=== PATIENT | male | born 2000 | race African-American/Black ===

== ENCOUNTER 2018-05-26 19:02 | Inpatient (IN) | payer SELFPAY ==
--- NOTE | 2018-05-26 19:30 | RAD ---
CHEST TWO VIEWS: 05/26/18 INDICATION: History of pneumonia. COMPARISON: Prior exam dated 05/25/18. FINDINGS: Left lower lobe air space opacity persists. Right lung is clear. cardiothymic silhouette is within no rmal limits. No acute osseous abnormality is evident. IMPRESSION: Persistent left lower lobe pneumonia. POS: [facility]
[2018-05-26] MEDS ORDERED: Ibuprofen 800 MG TAB ONE (19:50)
[2018-05-26 21:02] LABS: Mean Corpuscular HGB CONC 32.8 g/dL (32.0-36.0); Mean Corpuscular Hemoglobin 29.1 pg (25.0-35.0); Mean Corpuscular Volume 88.7 fL (78.0-98.0); Mean Platelet Volume 8.4 fL (7.4-10.4); Platelet Count 239 thou/uL (130-400); RBC Distribution Width 11.3 % (11.5-14.5); Red Blood Cell (RBC) Count 4.81 mill/uL (4.00-5.20); White Blood Cell (WBC) Count 24.1 thou/uL (4.8-10.8)
[2018-05-26 21:09] LABS: Band 51 % (5-11); Lymphocytes 4 % (28-48); MDiff Complete? YES; Monocytes 5 % (0-4); Neutrophil 40 % (31-61); Platelet Morphology Comment Appears Adequate; Reflex for Review?? NO
[2018-05-26 21:11] LABS: ALT (SGPT) 30 U/L (8-55); AST (SGOT) 20 U/L (5-34); Albumin 3.7 g/dL (3.5-5.0); Alkaline Phosphatase 85 U/L (Less than 750); Anion Gap 13 mmol/L (10-20); BUN (Urea Nitrogen) 25 mg/dL (8.9-20.6); Bilirubin, Total 0.8 mg/dL (0.2-1.2); Calc. Creatinine Clearance 0 mL/min (70-130); Calcium 9.7 mg/dL (7.8-10.44); Carbon Dioxide 25 mmol/L (22-29); Chloride 103 mmol/L (98-107); Estimated GFR-MDRD 85; Globulin 3.8 g/dL (2.4-3.5); Glucose 92 mg/dL (70-105); Magnesium 1.6 mg/dL (1.7-2.2); Potassium 3.4 mmol/L (3.5-5.1); Protein, Total 7.5 g/dL (6.0-8.3); Sodium 138 mmol/L (136-145)
[2018-05-26] MEDS ORDERED: cefTRIAXone\\ROCEPHIN 2 GM VIAL ONE (21:48)
[2018-05-26] MEDS ORDERED: Acetaminophen 500 MG TAB ONE (21:48)
[2018-05-26] MEDS ORDERED: Azithromycin 500 MG VIAL ONE ×2 (22:17→22:30)
[2018-05-26] MEDS ORDERED: Sodium Chloride 0.9% 1,000 ML IV SCH (23:25)
[2018-05-27 00:13] VITALS: BMI 23.8
[2018-05-27] MEDS ORDERED: Magnesium Sulfate 2 GM in Sodium Chloride 0.9% 100 ML IVPB SCH (00:15)
[2018-05-27] MEDS ORDERED: Calcium Carbonate 500 MG ChewTAB PO PRN (00:52)
[2018-05-27 00:53] LABS: Lactic Acid 1.1 mmol/L (0.5-2.2)
--- NOTE | 2018-05-27 01:09 | HP ---
The patient was seen and examined on May 26, 2018. PRIMARY CARE PHYSICIAN: The patient has seen Dr. Fair in the past. The patient does not have PCP at this time. CHIEF COMPLAINT: Cough and fever of 2 weeks duration. HISTORY OF PRESENT ILLNESS: The patient is a 18-year-old male, who presented to the emergency room with 2-week history of generalized body aches along with cough and fever. He was diagnosed with pneumonia yesterday and was started on Augmentin at [facility]. He felt worse today for which he presented to the emergency room. Over the last 2 weeks, the patient has generalized body aches along with fever, chills, and cough. The cough was productive of small amount of thick phlegm. He denies any sick contacts or recent travel. He did not seek any medical attention. He tried [id number] Theraflu and started to feel better. Over the last 3 to 4 days, his symptoms got worse for which he presented to the emergency room yesterday. Chest x-ray showed left lower lobe pneumonia. His WBC count was 14.7 with 92% neutrophils. Vital signs in the emergency room showed temperature 99.5, respiration of 20, pulse rate of 110 with blood pressure of 117/62, with O2 saturation 97% on room air. His WBC count today was 24.1 with 51% bandemia. He received vancomycin, azithromycin, and ceftriaxone in the emergency room. PAST MEDICAL HISTORY: Reviewed with the patient and none. He was diagnosed with influenza and strep throat last year. PAST SURGICAL HISTORY: Appendectomy. ALLERGIES: NO KNOWN DRUG ALLERGIES. CURRENT HOME MEDICATION: Augmentin that was started yesterday for pneumonia. SOCIAL HISTORY: The patient is a former smoker. Discontinued last week. No alcohol or drug use. FAMILY HISTORY: Negative for heart disease. REVIEW OF SYSTEMS: All other review of systems were reviewed and were found negative. PHYSICAL EXAMINATION: VITAL SIGNS: As discussed above. GENERAL: A 18-year-old male in mild distress. HEENT: Head, atraumatic and normocephalic. Sclerae anicteric. Moist mucous membranes. No oral lesion. NECK: Supple. No JVD. No carotid bruit. LUNGS: Showed diminished air entry over the left base with scattered rhonchi. Minimal accessory muscle use. No wheezing. HEART: S1 and S2 present. Regular rate and rhythm. Tachycardic. No heaves or pulsation. ABDOMEN: Soft, nontender. Bowel sounds present. EXTREMITIES: No edema or calf tenderness. NEUROLOGIC: Grossly nonfocal. Moves all 4 extremities. PSYCHIATRY: Alert, awake, and oriented x3. SKIN: Warm and dry. LYMPH NODES: No palpable lymph nodes in the neck. PERIPHERAL VASCULAR: Radial pulses palpable bilaterally. MUSCULOSKELETAL: No joint swelling or tenderness. LABORATORY FINDINGS: Influenza testing yesterday was negative. WBC count as discussed above with lymphopenia. His lymphocyte was only 4%. Urinalysis showed ketones with nitrite positive, 2+ bacteria, 4-6 wbc's. Chest x-ray by my review as discussed above. Potassium 3.4 with magnesium 1.9. LFTs in normal range. Lactic acid 1.1. IMPRESSION: 1. Sepsis secondary to left lower lobe pneumonia. The patient failed outpatient therapy. 2. Two weeks history of flu-like symptoms. Suspected influenza. His flu testing however yesterday was negative. 3. Lymphopenia, probably due to recent Viral illness. 4. Hypokalemia with potassium 3.4. 5. Hypomagnesemia. 6. Former smoker. PLAN: The patient will be monitored on the medical floor. We will replace electrolytes. We will start him on ceftriaxone and azithromycin. We will start him on ceftriaxone and azithromycin. We will add vancomycin for possible post influenza pneumonia due to Staphylococcus. We will recheck labs in a.m. Recheck labs in a.m. Repeat chest x-ray after 24 to 48 hours. Add Mucinex. We will also check strep pneumoniae urinary antigen. Add nebulizer treatment. Plan of care was discussed with the patient and the family at the bedside. Please note, the patient was seen and examined on May 26, 2018. Job ID: [id number] MTDD
[2018-05-27] MEDS: Vancomycin HCl 1 GM in Premix Bag 1 BAG IVPB SCH ×2 (03:08→15:35)
[2018-05-27] MEDS: D5 1/2 NS w/20 mEq KCL 1,000 ML IV SCH ×3 (03:08→20:53)
[2018-05-27 07:33] LABS: Hemoglobin 11.7 g/dL (14.0-18.0); Mean Corpuscular HGB CONC 32.2 g/dL (32.0-36.0); Mean Corpuscular Hemoglobin 28.6 pg (25.0-35.0); Mean Corpuscular Volume 88.8 fL (78.0-98.0); Platelet Count 231 thou/uL (130-400); RBC Distribution Width 11.3 % (11.5-14.5); Red Blood Cell (RBC) Count 4.09 mill/uL (4.00-5.20); White Blood Cell (WBC) Count 21.1 thou/uL (4.8-10.8)
[2018-05-27 07:59] LABS: ALT (SGPT) 24 U/L (8-55); AST (SGOT) 15 U/L (5-34); Alkaline Phosphatase 63 U/L (Less than 750); Anion Gap 8 mmol/L (10-20); BUN (Urea Nitrogen) 18 mg/dL (8.9-20.6); Bilirubin, Total 0.4 mg/dL (0.2-1.2); Calc. Creatinine Clearance 111 mL/min (70-130); Calcium 8.9 mg/dL (7.8-10.44); Carbon Dioxide 25 mmol/L (22-29); Chloride 107 mmol/L (98-107); Estimated GFR-MDRD Greater than 90; Globulin 3.1 g/dL (2.4-3.5); Glucose 99 mg/dL (70-105); Magnesium 2.4 mg/dL (1.7-2.2); Potassium 3.6 mmol/L (3.5-5.1); Protein, Total 6.1 g/dL (6.0-8.3); Sodium 136 mmol/L (136-145)
[2018-05-27] MEDS ORDERED: Senokot S 8.6-50 MG TAB PO PRN (09:00)
[2018-05-27] MEDS: guaiFENesin ER 600 MG TAB PO SCH ×2 (09:30→20:41)
[2018-05-27 10:15] LABS: Band 32 % (5-11); Lymphocytes 4 % (28-48); MDiff Complete? YES; Microcytosis SLIGHT = 6-15 cells (100X) (0-5/hpf); Monocytes 2 % (0-4); Myelocyte 1 % (0-0); Neutrophil 59 % (31-61); Platelet Morphology Comment Appears Adequate; Polychromasia SLIGHT = 2-3 cells (100X) (0-2/hpf); Reactive Lymphocytes 2 % (0-10)
[2018-05-27 10:40] LABS: Strep pneumo Urine Ag NEGATIVE (NEGATIVE)
--- NOTE | 2018-05-27 13:44 | PDOC.PN ---
- Subjective Encounter Start Date: 05/27/18 Encounter Start Time: 10:00 Pt seen for followup re: pneumonia. Says he feels better. - Objective Resuscitation Status - Order Detail: 05/27/18 00:52 Resuscitation Status Routine Resuscitation Status: FULL: Full Resuscitation Vital Signs & Weight: Vital Signs (12 hours) Temp Pulse Resp BP Pulse Ox 05/27/18 11:29 124/68 05/27/18 07:41 97.6 F 82 18 102/62 99 05/27/18 04:00 97.7 F 87 16 108/58 L 97 05/27/18 00:52 96 Weight Weight 147 lb 11.355 oz I&O: 05/26/18 05/27/18 05/28/18 05:59 06:59 06:59 Intake Total 1350 Balance 1350 Result Diagrams: 05/27/18 06:56 05/27/18 06:56 Phys Exam - Physical Examination Constitutional: NAD HEENT: moist MMs, sclera anicteric, oral pharynx no lesions, 2+ tonsils Neck: no nodes, no JVD, supple, full ROM Respiratory: wheezing present Cardiovascular: RRR, no rub S1, s2 Gastrointestinal: soft, non-tender, no distention, positive bowel sounds Neurological: moves all 4 limbs Psychiatric: normal affect, A&O x 3 Dx/Plan (1) Pneumonia Code(s): J18.9 - PNEUMONIA, UNSPECIFIED ORGANISM Status: Acute Comment: continue IV antibiotics as below for gram negative bacterial pneumonia (2) Hypokalemia Code(s): E87.6 - HYPOKALEMIA Status: Resolved (3) Sepsis Code(s): A41.9 - SEPSIS, UNSPECIFIED ORGANISM Status: Resolved - Plan * . Review of Systems - Review of Systems Constitutional: negative: fever, chills, sweats, weakness, malaise, other Respiratory: Cough, Sputum. negative: Dry, Shortness of Breath, Hemoptysis, SOB with Excertion, Pleuritic Pain, Wheezing Cardiovascular: negative: chest pain, palpitations, orthopnea, paroxysmal nocturnal dyspnea, edema, light headedness Gastrointestinal: negative: Nausea, Vomiting, Abdominal Pain, Diarrhea, Constipation, Melena, Hematochezia Genitourinary: negative: Dysuria, Frequency, Incontinence, Hematuria, Retention Skin: negative: Rash, Lesions, Hermann, Bruising - Medications/Allergies Allergies/Adverse Reactions: Allergies Allergy/AdvReac Type Severity Reaction Status Date / Time No Known Drug Allergies Allergy Verified 05/26/18 23:25 Medications: Current Medications Acetaminophen (Tylenol) 650 mg PO Q4H PRN PRN Reason: Headache/Fever/Mild Pain (1-3) Albuterol/Ipratropium (Duoneb) 3 ml NEB [id number] PRN PRN Reason: SOB &/or Wheezing Calcium Carbonate (Tums) 1,000 mg PO Q4H PRN PRN Reason: Heartburn or Indigestion Guaifenesin (Mucinex) 600 mg PO Q12HR [facility] Last Admin: 05/27/18 09:30 Dose: 600 mg Magnesium Sulfate 2 gm/ Sodium (Chloride) 104 mls @ 100 mls/hr IVPB ONE [facility] Stop: 05/28/18 00:16 Last Admin: 05/27/18 00:55 Dose: 104 mls Potassium Chloride/Dextrose/Sod Cl (D5 1/2 Ns W/20 Meq Kcl) 1,000 mls @ 100 mls /hr IV .Q10H [facility] Last Admin: 05/27/18 09:30 Dose: 1,000 mls Vancomycin HCl 1 gm/ Device 200 mls @ 200 mls/hr IVPB 0300,1500 [facility] Last Admin: 05/27/18 03:08 Dose: 200 mls Azithromycin 500 mg/ Sodium (Chloride) 250 mls @ 250 mls/hr IVPB Q24HR [facility] Ceftriaxone Sodium 2 gm/ (Sodium Chloride) 100 mls @ 200 mls/hr IVPB Q24HR [facility] Ibuprofen (Motrin) 400 mg PO Q6H PRN PRN Reason: Pain Miscellaneous Medication (Pharmacy To Dose) 1 each IVPB PRN PRN PRN Reason: Pharmacy to dose Senna/Docusate Sodium (Senokot S) 2 tab PO BID PRN PRN Reason: Constipation Sodium Chloride (Flush - Normal Saline) 10 ml IVF PRN PRN PRN Reason: Saline Flush
[2018-05-27] MEDS: Acetaminophen 325 MG TAB PO PRN (17:04)
[2018-05-27] MEDS ORDERED: Azithromycin 500 MG in Sodium Chloride 0.9% 250 ML 250 ML IVPB SCH (22:00)
[2018-05-27] MEDS ORDERED: cefTRIAXone\\ROCEPHIN 2 GM in Sodium Chloride 0.9% 100 ML IVPB SCH (22:00)
[2018-05-28] MEDS: Ibuprofen 200 MG TAB PO PRN ×2 (02:37→18:03)
[2018-05-28] MEDS: Vancomycin HCl 1 GM in Premix Bag 1 BAG IVPB SCH ×3 (03:28→12:02)
[2018-05-28] MEDS: D5 1/2 NS w/20 mEq KCL 1,000 ML IV SCH ×3 (05:30→18:03)
[2018-05-28 07:52] LABS: Hemoglobin 11.6 g/dL (14.0-18.0); Mean Corpuscular HGB CONC 33.3 g/dL (32.0-36.0); Mean Corpuscular Volume 86.9 fL (78.0-98.0); Mean Platelet Volume 7.7 fL (7.4-10.4); Platelet Count 249 thou/uL (130-400); RBC Distribution Width 11.3 % (11.5-14.5); Red Blood Cell (RBC) Count 3.99 mill/uL (4.00-5.20); White Blood Cell (WBC) Count 13.3 thou/uL (4.8-10.8)
[2018-05-28 08:07] LABS: ALT (SGPT) 31 U/L (8-55); AST (SGOT) 22 U/L (5-34); Alkaline Phosphatase 63 U/L (Less than 750); Anion Gap 10 mmol/L (10-20); BUN (Urea Nitrogen) 6 mg/dL (8.9-20.6); Bilirubin, Total Less than 0.2 mg/dL (0.2-1.2); Calc. Creatinine Clearance 145 mL/min (70-130); Calcium 8.9 mg/dL (7.8-10.44); Carbon Dioxide 24 mmol/L (22-29); Chloride 109 mmol/L (98-107); Estimated GFR-MDRD Greater than 90; Globulin 3.2 g/dL (2.4-3.5); Glucose 98 mg/dL (70-105); Potassium 3.5 mmol/L (3.5-5.1); Protein, Total 6.2 g/dL (6.0-8.3); Sodium 139 mmol/L (136-145)
[2018-05-28 09:22] LABS: Band 10 % (5-11); Eosinophils 1 % (0-10); Lymphocytes 9 % (28-48); MDiff Complete? YES; Monocytes 7 % (0-4); Neutrophil 72 % (31-61); RBC Morphology Normal; Reactive Lymphocytes 1 % (0-10)
[2018-05-28] MEDS: guaiFENesin ER 600 MG TAB PO SCH ×2 (09:34→19:38)
--- NOTE | 2018-05-28 09:36 | RAD ---
TWO VIEW CHEST: INDICATION: Followup pneumonia. COMPARISON: 05/26/2018. FINDINGS: Persistent left lower lobe infiltrate is again noted. This is seen posteriorly in the lateral view. Not significantly changed from 05/26/2018. The right lung appears clear. Heart and mediastinum unrem arkable. IMPRESSION: Persistent left lower lobe infiltrate. Continued followup recommended. POS: [facility]
--- NOTE | 2018-05-28 10:29 | PDOC.PN ---
- Subjective Encounter Start Date: 05/28/18 Encounter Start Time: 14:00 Subjective: Patient feeling much better. Off O2. Cough still pretty bad but -: SOB better. Ambulating well. - Objective Resuscitation Status - Order Detail: 05/27/18 00:52 Resuscitation Status Routine Resuscitation Status: FULL: Full Resuscitation MAR Reviewed: Yes Vital Signs & Weight: Vital Signs (12 hours) Temp Pulse Resp BP Pulse Ox 05/28/18 08:00 98 05/28/18 07:52 97.8 F 87 18 122/74 98 05/28/18 04:00 98.2 F 96 16 127/63 94 L 05/28/18 02:58 20 95 05/28/18 02:51 98 05/28/18 00:00 98.5 F 90 16 126/79 98 Weight Weight 147 lb 11.355 oz I&O: 05/27/18 05/28/18 05/29/18 06:59 06:59 06:59 Intake Total 3050 Balance 3050 Result Diagrams: 05/28/18 07:39 05/28/18 07:39 Phys Exam - Physical Examination Constitutional: NAD HEENT: moist MMs Respiratory: no wheezing, no rhonchi rales in left base Cardiovascular: RRR, no significant murmur Gastrointestinal: soft, positive bowel sounds Neurological: non-focal, moves all 4 limbs Psychiatric: normal affect, A&O x 3 Dx/Plan (1) Pneumonia Code(s): J18.9 - PNEUMONIA, UNSPECIFIED ORGANISM Status: Acute Qualifiers: Laterality: left Lung location: lower lobe of lung Comment: improving, will switch to oral omnicef and doxycycline (2) Sepsis Code(s): A41.9 - SEPSIS, UNSPECIFIED ORGANISM Status: Acute Comment: significantly improved, WBC much better today - Plan cont current plan of care, continue antibiotics Patient sating well on RA, will try to transition to oral abx. -: Possibly home tomorrow if continues to improve * . - Discharge Day Encounter end time: 14:10
[2018-05-28] MEDS: Cefdinir 300 MG CAP PO SCH (19:38)
[2018-05-28] MEDS: Doxycycline 100 MG CAP PO SCH (19:38)
[2018-05-28] MEDS: Acetaminophen 325 MG TAB PO PRN (19:38)
[2018-05-29] MEDS: D5 1/2 NS w/20 mEq KCL 1,000 ML IV SCH ×2 (04:36→15:07)
[2018-05-29] MEDS ORDERED: Benzonatate 100 MG CAP PO PRN (08:49)
--- NOTE | 2018-05-29 08:51 | PDOC.PN ---
- Subjective Encounter Start Date: 05/29/18 Encounter Start Time: 11:50 Subjective: Patient a little sleepy today. Otherwise doing well. New cough meds -: helping. No fever. Eating and ambulating well. - Objective Resuscitation Status - Order Detail: 05/27/18 00:52 Resuscitation Status Routine Resuscitation Status: FULL: Full Resuscitation MAR Reviewed: Yes Vital Signs & Weight: Vital Signs (12 hours) Temp Pulse Resp BP BP Pulse Ox 05/29/18 08:47 82 16 98 05/29/18 07:45 98.0 F 82 18 144/88 H 98 05/29/18 03:57 98.0 F 95 20 129/86 98 05/28/18 23:50 98.2 F 102 H 20 134/79 99 Weight Weight 147 lb 11.355 oz I&O: 05/28/18 05/29/18 05/30/18 06:59 06:59 06:59 Intake Total 3050 980 Balance 3050 980 Result Diagrams: 05/28/18 07:39 05/28/18 07:39 Phys Exam - Physical Examination Constitutional: NAD HEENT: moist MMs Respiratory: no wheezing, no rales few rhonchi in left base Cardiovascular: RRR, no significant murmur Gastrointestinal: soft, positive bowel sounds Neurological: non-focal, moves all 4 limbs Psychiatric: normal affect, A&O x 3 Dx/Plan (1) Pneumonia Code(s): J18.9 - PNEUMONIA, UNSPECIFIED ORGANISM Status: Acute Qualifiers: Laterality: left Lung location: lower lobe of lung Comment: improving, will switch to oral omnicef and doxycycline (2) Sepsis Code(s): A41.9 - SEPSIS, UNSPECIFIED ORGANISM Status: Resolved Comment: significantly improved, WBC much better. - Plan cont current plan of care, continue antibiotics d/c home, f/u with PCP in one week * . - Discharge Day Encounter end time: 12:05
[2018-05-29] MEDS ORDERED: guaiFENesin/DM ER PO SCH (09:00)
[2018-05-29] MEDS: Cefdinir 300 MG CAP PO SCH (09:50)
[2018-05-29] MEDS: Doxycycline 100 MG CAP PO SCH (09:50)
[2018-05-29 12:30] VITALS: BP 143/85; TEMP 98.5
--- NOTE | 2018-05-30 04:56 | DIS ---
DATE OF ADMISSION: 05/26/2018 DATE OF DISCHARGE: 05/29/2018 PRIMARY CARE PHYSICIAN: Kelly Fair MD REASON FOR ADMISSION: Pneumonia. DIAGNOSES AT DISCHARGE: 1. Acute community-acquired bacterial pneumonia. 2. Sepsis, resolved. PROCEDURES: None. CONSULTATIONS: None. SUMMARY OF HOSPITAL COURSE: This is a 18-year-old male with a history of 2 weeks of generalized body aches, cough, and fever. He was diagnosed with pneumonia the day prior to admission, started on Augmentin in the [facility], but felt worse today, re-presented to the emergency room, had worsening white cell count from 14,000 to 24,000 with 51% bands. He was given vancomycin, azithromycin, and ceftriaxone in the emergency room, admitted into the hospital. The patient slowly improved during the hospitalization. His repeat chest x-ray showed just a persistent left lower lobe infiltrate. Influenza testing was negative. However, there was concern for possibility of a post flu staph pneumonia. The patient's white blood cell count improved markedly and sepsis resolved. He was breathing well on room air. Cough was controlled with medications. Blood and urine cultures came back negative. No sputum culture was obtained. He was transitioned to oral antibiotics with cefdinir and doxycycline and was doing well on those and today he is being discharged home. Of note, he does have a nebulizer at home and was asking if he could have some of the albuterol fluid to use in it as he has been getting in the hospital. DISCHARGE MANAGEMENT: Location: Discharged home. Followup: With Dr. Fair, primary care physician in the next 7 days. Activity: As tolerated. Diet: Regular diet. Equipment: Continue nebulizer treatments as needed at home. DISCHARGE MEDICATIONS: 1. Albuterol sulfate 2.5 mg inhaled q.6 hours p.r.n., 30 nebs dispensed. 2. Tessalon Perles 200 mg 3 times a day as needed for cough, 20 caps dispensed. 3. Cefdinir 300 mg twice a day, 14 caps dispensed for a total of 10 days of antibiotics. 4. Doxycycline 100 mg twice a day, 14 caps dispensed. 5. Guaifenesin DM extended release one tablet twice a day for cough and congestion, 30 tablets dispensed. Job ID: [id number]
== END 2018-05-29 17:50 | disposition home or self-care (01) | DRG 871 ==
LOC: ERS 19:02 → T4-A 23:06
PROVIDERS: ADMIT Internal Medicine; ATTEND Internal Medicine
DX: A41.9 Sepsis, unspecified organism (principal); J15.9 Unspecified bacterial pneumonia; E87.6 Hypokalemia; E83.42 Hypomagnesemia; D72.810 Lymphocytopenia; Z90.49 Acquired absence of other specified parts of digestive tract; Z87.891 Personal history of nicotine dependence
CPT/HCPCS: 36415; 71046; 80053; 80202; 83605; 83735; 84484; 85007; 85025; 85027; 87040; 87086; 87899; 93005; 94640; 96361; 96365; 96367; 96368; J0456; J0696; J3370; J3475; J7050; J7620